=== PATIENT | male | born 1960 ===

== ENCOUNTER 2020-04-06 09:52 | Emergency (ER) | payer OTHER ==
[~2020-04-06] VITALS: Ht 167.6 cm; Wt 78.9 kg
[2020-04-06] MEDS ORDERED: NORVASC2.5 MG (10:03)
[2020-04-06] MEDS ORDERED: AVAPRO300 MG (10:03)
== END 2020-04-06 13:14 | disposition home or self-care (01) ==
LOC: ER 09:52
DX: R51 Headache (principal); R53.81 Other malaise